=== PATIENT | female | born 1985 ===

== ENCOUNTER 2023-08-26 11:08 | Outpatient (CLI) | payer MEDICARE, MEDICAID, SELFPAY | END 2023-08-26 11:09 | disposition home or self-care (01) | PROVIDERS: PCP Registered Nurse; Visit Provider Registered Nurse | DX: Z01.419 Encounter for gynecological examination (general) (routine) without abnormal findings (principal); Z13.29 Encounter for screening for other suspected endocrine disorder; Z13.6 Encounter for screening for cardiovascular disorders | CPT/HCPCS: 80061; 84443 ==

== ENCOUNTER 2023-09-16 09:55 | Outpatient (CLI) | payer MEDICARE, MEDICAID, SELFPAY ==
--- NOTE | 2023-09-16 10:45 | US_ITS ---
Patient: CLAUDIA DANGELO Facility:?[facility] Patient ID:?[id number] Site Patient ID:?[id number]. Site :?[id number] Study:?US-Pelvis PELVIS TA & TV-09/16/2023 11:00:21 AM Ordering Physician:?MARLENE HANEY CNP Final Report: INDICATION: Check IUD placement. Patient unsure if IUD was removed. COMPARISON: None. TECHNIQUE: 2D castillo scale and color Doppler images were acquired of the pelvis using a transabdominal and transvaginal approach. FINDINGS: Sonographic images demonstrate a normal size and smooth outer contour of the uterus. The uterus is anteverted and retroflexed in position. The uterus measures 9.3 cm in length by 3.5 cm in AP diameter by 4.6 cm in transverse dimension. The myometrium has uniform echotexture. There are two tiny echogenic foci in the lower uterine segment which are nonspecific but likely represent benign calcifications. The endometrial lining measures 2 mm in composite thickness. No IUD is visualized within the endometrial canal. The ovaries were not visualized. No free fluid in the pelvic cul-de-sac. IMPRESSION: 1. No IUD visualized. Thin endometrial stripe. 2. Nonvisualization of the ovaries. Dictated by Adelaida Alberto MD @ 09/17/2023 1:53:42 AM Signed by:?Adelaida Alberto MD @09/17/2023 1:53:42 AM (Electronic Signature)
== END 2023-09-16 09:56 | disposition home or self-care (01) ==
PROVIDERS: Visit Provider Registered Nurse
DX: Z30.431 Encounter for routine checking of intrauterine contraceptive device (principal)
CPT/HCPCS: 76830; 76856